=== PATIENT | female | born 1985 | race Caucasian/White ===

== ENCOUNTER → 2018-08-01 12:15 | Outpatient (CLI) | payer BC, SELFPAY ==
[2018-08-01 14:06] LABS: Free T4, Direct Thyroxine 1.18 ng/dL (0.78-2.19)
[2018-08-01 14:09] LABS: Follicle Stimulating Hormone 4.81 mIU/mL; Prolactin 20.6 ng/mL (3.0-18.6)
[2018-08-01 14:20] LABS: Thyroid Stimulating Hormone 0.04 uIU/mL (0.47-4.68)
[2018-08-05 20:30] LABS: Testosterone, Free 0.11 ng/dL
[2018-08-06 14:31] LABS: Albumin 4.5 g/dL (3.6-5.1); Sex Hormone Binding Globulin 34 nmol/L (17-124); Testosterone, Bioavailable 3.8 ng/dL (0.5-8.5); Testosterone, Total 16 ng/dL (2-45); Testosterone,Free 1.8 pg/mL (0.2-5.0)
== END ==
PROVIDERS: Family Provider Physician Assistant; PCP Physician Assistant
DX: N93.9 Abnormal uterine and vaginal bleeding, unspecified (principal); Z30.09 Encounter for other general counseling and advice on contraception
CPT/HCPCS: 36415; 82040; 83001; 84146; 84270; 84402; 84403; 84439; 84443